=== PATIENT | male | born 1950 | race Caucasian/White ===

== ENCOUNTER → 2016-11-26 | Outpatient (CLI) | payer BC ==
[~2016-11-26] MED LIST: ALEVE 220MG220 MG PO; ASPIRIN 32325 MG/TAB PO; ASPIRIN E.C. 8181 MG PO; ATIVAN 0.50.5 MG/TAB PO; BYSTOLIC10 MG PO; CEPHALEXIN500 M1 PO; CHLOR TRIMETON 44 MG; EFFIENT10 MG PO; HCTZ PO; HCTZ12.5TAB PO; LIPITOR 40MG TA40 MG PO; LISINOPRIL20 MG PO; LOPRESSOR 225 MG/TAB PO; LOPRESSOR 550 MG/TAB PO; MEDROL 4MG DOSPA4 MG PO; NAPROXEN220 MG PO; NITROSTAT0.4 MG/TAB SL; NORCO 325 MG-51 TAB PO; PANTOPRAZOLE40 MG PO; PLAVIX 75MG TAB75 MG PO; PRILOSEC 20MG20 MG PO; PRINIVIL20 MG PO; PROTONIX 40MG T40 MG PO; SIMVASTATIN20 MG PO; TYLENOL 325MG325 MG; TYLENOL 8 HR PO; ZOCOR 40MG40 MG PO
[2016-11-26 16:40] LABS: BASO % 0.7 % (0.0-2.0); EOS # 0.1 (0.0-0.7); EOS % 1.6 % (0-4.0); GRAN % 53.4 % (42.2-75.2); HEMATOCRIT 40.9 % (42.0-52.0); HEMOGLOBIN 14.4 g/dl (13.5-18.0); LYMPH # 1.9 (1.2-3.4); MEAN CELL VOLUME 87 fl (80.0-100.0); MEAN CORPUSCULAR HEMOGLOBIN 31 pg (27.0-31.0); MEAN CORPUSCULAR HGB CONC 35 g/dl (33.0-37.0); MEAN PLATELET VOLUME 9.8 fl (7.4-10.4); MONO # 0.6 (0.1-0.6); MONO % 10.1 % (1.7-9.3); PLATELET COUNT 193 K/mm3 (130-400); REDCELL DISTRIBUTION WIDTH-CV 11.6 % (11.5-14.5); WHITE BLOOD COUNT 5.6 K/mm3 (4.8-10.8)
[2016-11-26 16:53] LABS: ANION GAP 10 mmol/L (7-16); BLOOD UREA NITROGEN 15 mg/dL (9-20); CALCIUM 9.6 mg/dL (8.4-10.2); CARBON DIOXIDE 31 mmol/L (22-30); CHLORIDE 99 mmol/L (98-107); CREATININE, serum 0.95 mg/dL (0.66-1.25); GLUCOSE 86 mg/dL (74-106); POTASSIUM 3.3 mmol/L (3.4-5.0); SODIUM 140 mmol/L (137-145)
[2016-11-26 17:13] LABS: TROPONIN-I < 0.012 ng/mL (0.000-0.034)
== END ==
LOC: COL.LAB 15:28
PROVIDERS: Internal Medicine Interventional Cardiology
DX: I20.8 Other forms of angina pectoris (principal)

== ENCOUNTER 2017-11-03 07:14 | Emergency (ER) | payer BC ==
[~2017-11-03] VITALS: Ht 175.3 cm; Wt 79.2 kg
[2017-11-03 07:21] VITALS: TEMP 98.1
[2017-11-03 08:16] LABS: INFLUENZA A NEGATIVE; INFLUENZA B NEGATIVE
[2017-11-03] MEDS ORDERED: TAMIFLU 75MG75 MG PO (08:21)
[2017-11-03 08:28] VITALS: BP 154/102; PULSE 55
== END 2017-11-03 08:32 | disposition home or self-care (01) ==
LOC: COL.ER 07:14
PROVIDERS: Physician Assistant
DX: J11.1 Influenza due to unidentified influenza virus with other respiratory manifestations (principal); I10 Essential (primary) hypertension; E78.5 Hyperlipidemia, unspecified; I25.10 Atherosclerotic heart disease of native coronary artery without angina pectoris; Z95.5 Presence of coronary angioplasty implant and graft; Z87.891 Personal history of nicotine dependence; Z79.82 Long term (current) use of aspirin

== ENCOUNTER 2018-09-13 07:37 | Day surgery (SDC) | payer MEDICARE ==
[~2018-09-13] VITALS: Ht 175.4 cm; Wt 81.6 kg
[2018-09-13] VITALS (8 sets, daily range): BP systolic 123–158; BP diastolic 80–98; PULSE 77–96; TEMP 98.1–99
[~2018-09-13 07:37] MED LIST changes: +TAMIFLU 75MG75 MG PO
[2018-09-13 09:14] LABS: HEMATOCRIT 44.1 % (42.0-52.0); HEMOGLOBIN 15.2 g/dl (13.5-18.0); MEAN CELL VOLUME 92 fl (80.0-100.0); MEAN CORPUSCULAR HEMOGLOBIN 32 pg (27.0-31.0); MEAN CORPUSCULAR HGB CONC 35 g/dl (33.0-37.0); MEAN PLATELET VOLUME 10.1 fl (7.4-10.4); PLATELET COUNT 197 K/mm3 (130-400); RED BLOOD COUNT 4.82 M/mm3 (4.20-5.60); REDCELL DISTRIBUTION WIDTH-CV 12.2 % (11.5-14.5)
[2018-09-13 09:18] LABS: PROTHROMBIN TIME 10.9 SECONDS (9.7-12.8)
[2018-09-13] MEDS ORDERED: TYLENOL 325MG325 MG PO (09:21)
[2018-09-13] MEDS ORDERED: K-DUR20 MEQ PO (09:22)
[2018-09-13] MEDS ORDERED: TOPROL XL 50MG50 MG PO (09:22)
[2018-09-13] MEDS ORDERED: IMDUR 30MG30 MG/TAB PO (09:23)
[2018-09-13 09:24] LABS: CALCIUM 9.3 mg/dL (8.4-10.2); CREATININE, serum 0.89 mg/dL (0.66-1.25); POTASSIUM 4.2 mmol/L (3.4-5.0)
== END 2018-09-13 14:26 | disposition home or self-care (01) ==
LOC: COL.CAR 07:37
PROVIDERS: Internal Medicine Interventional Cardiology
DX: I25.119 Atherosclerotic heart disease of native coronary artery with unspecified angina pectoris (principal); I10 Essential (primary) hypertension; E78.5 Hyperlipidemia, unspecified; I87.2 Venous insufficiency (chronic) (peripheral); Z79.82 Long term (current) use of aspirin; Z79.899 Other long term (current) drug therapy; Z87.891 Personal history of nicotine dependence
CPT/HCPCS: J1644; J2250; J3010; Q9967

== ENCOUNTER → 2019-06-10 | Outpatient (CLI) | payer MEDICARE ==
[~2019-06-10] MED LIST changes: +IMDUR 30MG30 MG/TAB PO; +K-DUR20 MEQ PO; +TOPROL XL 50MG50 MG PO; +TYLENOL 325MG325 MG PO
== END ==
LOC: COL.VAS 13:07
DX: Z13.6 Encounter for screening for cardiovascular disorders (principal); M79.89 Other specified soft tissue disorders

== ENCOUNTER 2021-07-28 23:20 | Emergency (ER) | payer MEDICARE | END 2021-07-29 00:02 | disposition left against medical advice (07) | LOC: COL.ER 23:20 | DX: J98.9 Respiratory disorder, unspecified (principal) ==

== ENCOUNTER → 2021-08-12 | Outpatient (CLI) | payer MEDICARE ==
[2021-08-12 13:28] LABS: ALBUMIN 3.6 gm/dL (3.4-4.8); BILIRUBIN,TOTAL 0.9 mg/dL (0.2-1.2); C-REACTIVE PROTEIN 18.29 mg/dL (0.00-0.50); CALCIUM 8.6 mg/dL (8.4-10.2); CREATININE, serum 1.19 mg/dL (0.72-1.25); TOTAL PROTEIN 7.4 gm/dL (6.2-8.1)
== END ==
LOC: ZCOL.LAB 11:20
PROVIDERS: Internal Medicine Interventional Cardiology
DX: I25.10 Atherosclerotic heart disease of native coronary artery without angina pectoris (principal); R19.7 Diarrhea, unspecified; R05.9 Cough, unspecified

== ENCOUNTER → 2023-01-01 | Outpatient (CLI) | payer MEDICARE, OTHER ==
[2023-01-01 15:27] LABS: BASO # 0.1 K/mm3 (0.0-0.2); BASO % 0.7 % (0.0-2.0); EOS # 0.2 K/mm3 (0.0-0.7); EOS % 2.5 % (0.0-4.0); GRAN # 3.9 K/mm3 (1.4-6.5); GRAN % 53.2 % (42.2-75.2); HEMATOCRIT 43.7 % (42.0-52.0); HEMOGLOBIN 14.9 g/dl (13.5-18.0); LYMPH # 2.6 K/mm3 (1.2-3.4); LYMPH % 35.2 % (20.0-51.0); MEAN CELL VOLUME 92 fl (80.0-100.0); MEAN CORPUSCULAR HEMOGLOBIN 31 pg (27-31); MEAN CORPUSCULAR HGB CONC 34 g/dl (33.0-37.0); MEAN PLATELET VOLUME 10.2 fl (7.4-10.4); MONO # 0.6 K/mm3 (0.1-0.6); MONO % 8.1 % (1.7-9.3); PLATELET COUNT 195 K/mm3 (130-400); RED BLOOD COUNT 4.75 M/mm3 (4.20-5.60); REDCELL DISTRIBUTION WIDTH-CV 12.3 % (11.5-14.5)
[2023-01-01 15:31] LABS: ALANINE AMINOTRANSFERASE 30 U/L (0-55); ALKALINE PHOSPHATASE 100 U/L (40-150); ANION GAP 11 mmol/L (7-16); AST,SGOT 25 U/L (5-34); BILIRUBIN,TOTAL 0.8 mg/dL (0.2-1.2); BLOOD UREA NITROGEN 18 mg/dL (8-26); CALCIUM 8.8 mg/dL (8.4-10.2); CARBON DIOXIDE 26 mmol/L (23-31); CHLORIDE 106 mmol/L (98-107); CREATININE, serum 1.34 mg/dL (0.72-1.25); GLUCOSE 77 mg/dL (70-99); POTASSIUM 4.1 mmol/L (3.5-4.5); SODIUM 143 mmol/L (136-145)
[2023-01-01 15:37] LABS: TROPONIN-I < 0.010 ng/mL (0.00-0.033)
== END ==
LOC: COL.LAB 14:49
PROVIDERS: Nurse Practitioner
DX: R07.9 Chest pain, unspecified (principal)